=== PATIENT | female | born 1955 ===

== ENCOUNTER 2023-04-03 14:30 | Outpatient (CLI) | payer MEDICARE | END 2023-04-03 14:31 | disposition home or self-care (01) | LOC: EMS 14:30 | DX: S79.919A Unspecified injury of unspecified hip, initial encounter (principal); W18.30XA Fall on same level, unspecified, initial encounter; Y92.481 Parking lot as the place of occurrence of the external cause | CPT/HCPCS: A0425; A0427 ==